=== PATIENT | female | born 1980 | race Caucasian/White ===

== ENCOUNTER 2016-06-14 07:18 | Emergency (ER) | payer OTHER ==
[~2016-06-14] VITALS: Ht 152.4 cm; Wt 46.9 kg
[2016-06-14 07:25] VITALS: BP 117/65
== END 2016-06-14 08:21 | disposition home or self-care (01) ==
LOC: ED 07:18
DX: M54.5 Low back pain (principal); R31.9 Hematuria, unspecified; R30.0 Dysuria; R10.9 Unspecified abdominal pain